=== PATIENT | female | born 1965 | race Two or more races ===

== ENCOUNTER 2022-12-11 07:39 | Emergency (ER) | payer MEDICAID ==
[~2022-12-11] VITALS: Ht 154.9 cm; Wt 73.5 kg
[2022-12-11 07:46] VITALS: BP 152/93
[2022-12-11] MEDS ORDERED: HYDROcodone-ACET 5/325MG TAB PO ONE (08:15)
[2022-12-11] MEDS ORDERED: KETOROLAC TROMETH 60MG/2ML VIAL IM ONE (08:15)
[2022-12-11] MEDS ORDERED: HYDR-4798 PO (09:43)
[2022-12-11] MEDS ORDERED: IBUP-1456 PO (09:43)
== END 2022-12-11 10:17 | disposition home or self-care (01) ==
LOC: ER 07:39
DX: S82.301A Unspecified fracture of lower end of right tibia, initial encounter for closed fracture (principal); S82.831A Other fracture of upper and lower end of right fibula, initial encounter for closed fracture; W18.39XA Other fall on same level, initial encounter; Y93.89 Activity, other specified; Y92.89 Other specified places as the place of occurrence of the external cause; Y99.8 Other external cause status
CPT/HCPCS: 29505; 73610; 73630; 93971; 96372; 99285; J1885